=== PATIENT | female | born 1995 | race Caucasian/White ===

== ENCOUNTER 2016-04-20 16:19 | Emergency (ER) | payer OTHER ==
[~2016-04-20] VITALS: Ht 172.7 cm; Wt 77.4 kg
[2016-04-20 16:31] VITALS: TEMP 36.9; Ht 172.7 cm; Wt 77.4 kg
[2016-04-20] MEDS ORDERED: ONDANSETRON INJ 2 MG/ML 2 ML VIAL IV STA (18:09)
[2016-04-20] MEDS ORDERED: MoRPHine SULFATE 4 MG/ML 1 ML CARP\\VIAL IV STA (18:09)
[2016-04-20] MEDS ORDERED: OPTIRAY 320 IV PRN (18:15)
[2016-04-20] MEDS ORDERED: IBUP-103 PO (18:48)
[2016-04-20 18:56] LABS: BASO % 0.5 %; BASO ABS # 0.04 K/uL (0-0.2); COMPLETE YES; EOS % 2.3 %; IG% 0.1 %; LYMPH % 30.3 %; LYMPH ABS # 2.41 K/uL (1.2-3.4); MEAN CELL VOLUME 82.6 fL (80-100); MEAN CORPUSCULAR HEMOGLOBIN 27.9 pg (25-34); MEAN CORPUSCULAR HGB CONC 33.8 g/dl (32-36); MEAN PLATELET VOLUME 10.2 fL (7.4-10.4); MONO % 4.8 %; PLATELET COUNT 279 K/uL (130-400); RED BLOOD COUNT 4.84 M/uL (4.2-5.4); WHITE BLOOD COUNT 7.96 K/uL (4.8-10.8)
[2016-04-20 19:00] LABS: URINE APPEARANCE CLEAR (CLEAR); URINE BILIRUBIN NEG (NEG); URINE COLOR YELLOW; URINE NITRITE NEG (NEG); URINE PH 8.5 (4.5-7.5); URINE SPECIFIC GRAVITY 1.012 (1.000-1.030); UROBILINOGEN NEG (NEG)
[2016-04-20 19:05] LABS: MANUAL MICROSCOPIC REQUIRED? NO; REVIEW REQ? NO
[2016-04-20 19:22] LABS: BUN/CREATININE RATIO 12.7 (10-20); CALCIUM 9.4 mg/dl (8.5-10.1); CREATININE 0.95 mg/dl (0.60-1.20); POTASSIUM 3.9 mmol/L (3.5-5.1)
[2016-04-20 20:53] VITALS: BP 125/68; PULSE 61; O2SAT 99
--- NOTE | 2016-04-20 21:10 | DIAGNOSTIC IMAGING REPORT ---
CT OF THE ABDOMEN AND PELVIS WITH CONTRAST CLINICAL HISTORY: Lower abdominal and back pain. COMPARISON STUDY: None. TECHNIQUE: Following IV administration of 117 mL of Optiray-320, axial images of the abdomen and pelvis were obtained from the lung bases to the proximal femurs. Images were reviewed in the axial, sagittal, and coronal planes. IV contrast was administered without complication. Oral contrast was administered. CT DOSE: 347.29 mGy.cm FINDINGS: Lung bases are clear. The liver, spleen, adrenal glands, kidneys and pancreas are normal. No peripancreatic or pericholecystic infiltration is present. There is no evidence for a bowel obstruction. The appendix is normal. Intrauterine device is in place. A small amount of fluid is noted within the pelvis. The ovaries are not significantly enlarged. No suspicious skeletal lesions are present. A tampon is in place. There is a moderate amount of stool within the colon. IMPRESSION: 1. No acute process within the abdomen or pelvis. Normal appendix. 2. Small amount of fluid within the pelvis which is likely physiologic. Electronically signed by: Modesto Triplett M.D. 04/20/2016 9:08 PM Dictated Date/Time: 04/20/2016 9:03 PM
--- NOTE | 2016-04-20 23:25 | EMERGENCY ROOM VISIT NOTE ---
History Report prepared by Nathan: Glory Rios Under the Supervision of: Dr. Gonzalo Thornton M.D. First contact with patient: 18:03 Chief Complaint: ABDOMINAL PAIN Stated Complaint: LOWER ABD/BACK PAIN, AROUND APPENDIX Nursing Triage Summary: Triage note: pt reports right lower abd pain x several days. pt reports nausea and vomitting. pt denies any diarrhea. History of Present Illness The patient is a 20 year old female who presents to the Emergency Room with complaints of intermittent RLQ abdominal pain for the past several days. She rates her pain as a 6/10 and states it radiates into her low back. She describes the pain as feeling sharp and "burning" in nature. She has also been nauseous and vomited once this morning. The patient saw [facility] yesterday and had her urine checked. She admits to the chills but denies any fevers, urinary symptoms, abnormal vaginal bleeding or diarrhea. She reports [facility] did a urine screen and it was negative. [facility] recommended Tylenol every 6 hours, and it has provided some relief for her discomfort. The patient denies any history of previous abdominal surgeries. She has a history of migraine headaches but denies any other chronic medical problems. Source of History: patient Onset: several days [employer] Position: abdomen (RLQ) Symptom Intensity: 6/10 Quality: burning, sharp Timing: intermittent Modifying Factors (Relieving): tylenol Associated Symptoms: + back pain, + chills, + nausea, + vomiting, No diarrhea, No fevers, No urinary symptoms Review of Systems See HPI for pertinent positives & negatives. A total of 10 systems reviewed and were otherwise negative. Past Medical & Surgical Medical Problems: (1) Migraine headache Social History Smoking Status: Never Smoker Smokeless Tobacco Use: No Alcohol Use: occasionally Drug Use: none Marital Status: single Housing Status: lives with roommate Occupation Status: [employer] student Current/Historical Medications Scheduled Ibuprofen Tab (Advil), 400 MG PO PRN UD Physical Exam Vital Signs Date Time Temp Pulse Resp B/P Pulse Ox O2 Delivery O2 Flow Rate FiO2 04/20/16 20:53 61 16 125/68 99 Room Air 04/20/16 18:36 58 16 112/61 98 Room Air 04/20/16 16:31 36.9 73 18 129/74 97 Room Air Physical Exam Constitutional: Vital signs reviewed. Eyes: Pupils are equal round reactive to light. Conjunctiva are noninjected. ENT: Pharynx is clear without erythema or exudate. Mucous membranes are moist. Neck supple without meningeal signs. Respiratory: Clear to auscultation bilaterally. Breath sounds are equal bilaterally. Cardiovascular: Regular rate and rhythm. No rubs or gallops. GI: Soft, nondistended. RLQ tenderness, no guarding. Bowel sounds are present. Musculoskeletal: No peripheral edema. No CVA tenderness. Integumentary: No cyanosis. Neurological: The patient is awake and alert. No focal deficits. Psychiatric: Normal affect. Medical Decision & Procedures ER Provider Diagnostic Interpretation: This CT scan was reviewed and interpreted by the radiologist and reviewed by myself. CT OF THE ABDOMEN AND PELVIS WITH CONTRAST CLINICAL HISTORY: Lower abdominal and back pain. COMPARISON STUDY: None. TECHNIQUE: Following IV administration of 117 mL of Optiray-320, axial images of the abdomen and pelvis were obtained from the lung bases to the proximal femurs. Images were reviewed in the axial, sagittal, and coronal planes. IV contrast was administered without complication. Oral contrast was administered. CT DOSE: 347.29 mGy.cm FINDINGS: Lung bases are clear. The liver, spleen, adrenal glands, kidneys and pancreas are normal. No peripancreatic or pericholecystic infiltration is present. There is no evidence for a bowel obstruction. The appendix is normal. Intrauterine device is in place. A small amount of fluid is noted within the pelvis. The ovaries are not significantly enlarged. No suspicious skeletal lesions are present. A tampon is in place. There is a moderate amount of stool within the colon. IMPRESSION: 1. No acute process within the abdomen or pelvis. Normal appendix. 2. Small amount of fluid within the pelvis which is likely physiologic. Electronically signed by: Modesto Triplett M.D. 04/20/2016 9:08 PM Laboratory Results 04/20/16 18:30 Red Blood Count 4.84, Mean Corpuscular Volume 82.6, Mean Corpuscular Hemoglobin 27.9, Mean Corpuscular Hemoglobin Concent 33.8, Mean Platelet Volume 10.2, Neutrophils (%) (Auto) 62.0, Lymphocytes (%) (Auto) 30.3, Monocytes (%) (Auto) 4.8, Eosinophils (%) (Auto) 2.3, Basophils (%) (Auto) 0.5, Neutrophils # (Auto) 4.94, Lymphocytes # (Auto) 2.41, Monocytes # (Auto) 0.38, Eosinophils # (Auto) 0.18, Basophils # (Auto) 0.04 04/20/16 18:30 Test 04/20/16 18:30 White Blood Count 7.96 K/uL (4.8-10.8) Red Blood Count 4.84 M/uL (4.2-5.4) Hemoglobin 13.5 g/dL (12.0-16.0) Hematocrit 40.0 % (37-47) Mean Corpuscular Volume 82.6 fL (80-100) Mean Corpuscular Hemoglobin 27.9 pg (25-34) Mean Corpuscular Hemoglobin Concent 33.8 g/dl (32-36) Platelet Count 279 K/uL (130-400) Mean Platelet Volume 10.2 fL (7.4-10.4) Neutrophils (%) (Auto) 62.0 % Lymphocytes (%) (Auto) 30.3 % Monocytes (%) (Auto) 4.8 % Eosinophils (%) (Auto) 2.3 % Basophils (%) (Auto) 0.5 % Neutrophils # (Auto) 4.94 K/uL (1.4-6.5) Lymphocytes # (Auto) 2.41 K/uL (1.2-3.4) Monocytes # (Auto) 0.38 K/uL (0.11-0.59) Eosinophils # (Auto) 0.18 K/uL (0-0.5) Basophils # (Auto) 0.04 K/uL (0-0.2) RDW Standard Deviation 41.3 fL (36.4-46.3) RDW Coefficient of Variation 13.7 % (11.5-14.5) Immature Granulocyte % (Auto) 0.1 % Immature Granulocyte # (Auto) 0.01 K/uL (0.00-0.02) Urine Color YELLOW Urine Appearance CLEAR (CLEAR) Urine pH 8.5 (4.5-7.5) Urine Specific [place] 1.012 (1.000-1.030) Urine Protein NEG (NEG) Urine Glucose (UA) NEG (NEG) Urine Ketones NEG (NEG) Urine Occult Blood NEG (NEG) Urine Nitrite NEG (NEG) Urine Bilirubin NEG (NEG) Urine Urobilinogen NEG (NEG) Urine Leukocyte Esterase NEG (NEG) Urine Test NEG (NEG) Anion Gap 9.0 mmol/L (3-11) Est Creatinine Clear Calc Drug Dose 104.2 ml/min Estimated GFR () 100.6 Estimated GFR (Non- 86.8 BUN/Creatinine Ratio 12.7 (10-20) Calcium Level 9.4 mg/dl (8.5-10.1) Total Bilirubin 0.3 mg/dl (0.2-1) Direct Bilirubin 0.1 mg/dl (0-0.2) Aspartate Amino Transf (AST/SGOT) 13 U/L (15-37) Alanine Aminotransferase (ALT/SGPT) 17 U/L (12-78) Alkaline Phosphatase 36 U/L (45-117) Total Protein 7.5 gm/dl (6.4-8.2) Albumin 4.2 gm/dl (3.4-5.0) Lipase 268 U/L (73-393) Laboratory results as reviewed by me. Medications Administered Medications (Trade) Dose Ordered Sig/Bina Route Start Time Stop Time Status Last Admin Dose Admin Morphine Sulfate (MoRPHine SULFATE INJ) 4 mg ONE STAT IV 04/20/16 18:09 04/20/16 18:10 DC 04/20/16 18:30 4 MG Ondansetron HCl (Zofran Inj) 4 mg NOW STAT IV 04/20/16 18:09 04/20/16 18:10 DC 04/20/16 18:30 4 MG ED Course 1803: The patient was evaluated in room B12B. A complete history and physical exam was performed. 1808: Zofran 4 mg IV, Morphine Sulfate 4 mg IV. 1914: I reevaluated the patient. She is waiting to go to CT scan. I discussed her test results with her and she verbalized complete understanding and agreement. 2114: I reevaluated the patient. I discussed her test results and discharge instructions and she verbalized complete understanding and agreement. Medical Decision This is a 20-year-old female presents with right-sided abdominal pain with tenderness. Differential diagnosis includes ovarian cyst, appendicitis, ectopic , UTI, kidney stone, irritable bowel syndrome. I did perform a limited focused review of portions of the patient's old chart on the electronic medical record. The patient has had no prior visits to this hospital. I did evaluate the patient as noted above. IV access was established. I did treat the patient with IV morphine and Zofran. I did order and personally review the patient's urinalysis as described above. I did order and review the patient's blood work as noted in the electronic medical record. Her white blood cell count is not elevated. I did order a CT of the abdomen and pelvis. I did review the images myself as well as the radiology report as described above. There is no evidence of appendicitis. Ovaries appeared normal on CT scanning. I did reassess the patient. I did discuss the test results with her. She was advised to follow closely with her doctor. She was discharged in good condition. She was given return instructions. Impression Primary Impression: RLQ abdominal pain Scribe Attestation The scribe's documentation has been prepared under my direct and personally reviewed by me in its entirety. I confirm that the note above accurately reflects all work, treatment, procedures, and medical decision making performed by me. Departure Information Dispostion Home / Self-Care Referrals No Doctor, Assigned (PCP) Patient Instructions ED Abd Pain Unkn Cause Fem, My [facility] Additional Instructions You have been examined and treated today on an emergency basis only. This is not a substitute for, or an effort to provide, complete comprehensive medical care. It is impossible to recognize and treat all injuries or illnesses in a single emergency department visit. It is therefore important that you follow up closely with [facility]. Call as soon as possible for an appointment. Return for worsening symptoms or if you develop fever, vomiting, or any other concerning symptoms.
== END 2016-04-20 21:28 | disposition home or self-care (01) ==
LOC: C.EDB 16:21
DX: R10.31 Right lower quadrant pain (principal); R11.2 Nausea with vomiting, unspecified; M54.9 Dorsalgia, unspecified; R68.83 Chills (without fever)

== ENCOUNTER 2017-05-06 02:54 | Emergency (ER) | payer OTHER ==
[~2017-05-06] VITALS: Ht 172.7 cm; Wt 72.6 kg
[~2017-05-06 02:54] MED LIST: IBUP-103 PO
[2017-05-06 02:59] VITALS: TEMP 36.6; Ht 172.7 cm; Wt 72.6 kg
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
[2017-05-06 04:19] VITALS: BP 119/71; PULSE 72; O2SAT 98
[2017-05-06 04:23] LABS: CREATININE 0.9 mg/dl (0.60-1.20); POTASSIUM 3.7 mmol/L (3.5-5.1)
== END 2017-05-06 04:34 | disposition home or self-care (01) ==
LOC: C.EDB 02:57 → C.EDA 04:34
DX: F10.929 Alcohol use, unspecified with intoxication, unspecified (principal); Y90.7 Blood alcohol level of 200-239 mg/100 ml